=== PATIENT | male | born 1995 | race Caucasian/White ===

== ENCOUNTER 2017-05-24 12:13 | Emergency (ER) | payer BC ==
[~2017-05-24] VITALS: Ht 182.9 cm; Wt 98.8 kg
[2017-05-24] MEDS ORDERED: SODIUM CHLORIDE 0.9% 1000ML 1,000 ML IV STA (12:18)
[2017-05-24] MEDS ORDERED: ONDANSETRON INJ 2 MG/ML 2 ML VIAL IV STA (12:20)
--- NOTE | 2017-05-24 12:23 | EMERGENCY ROOM VISIT NOTE ---
History Report prepared by Darren: Julienne Durán Under the Supervision of: Dr. Minor Farley M.D. 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 Per EMS, the patient was walking home from a libertarian and fell multiple times onto his face. Unknown if there was any injury to the head. They report that the patient has been in and out of responsiveness and has had multiple episodes of hematemesis. The patient has a chin laceration. He states that he did not drink much today. Source of History: patient, EMS Onset: just HAZMAT CDL DRIVER Position: other (global) Quality: other (alcohol overdose) Timing: other (episode) Note: Pt has chin laceration. Review of Systems See HPI for pertinent positives & negatives. A total of 10 systems reviewed and were otherwise negative. Past Medical & Surgical Medical Problems: (1) No chronic problems Family History No pertinent family history stated. Social History Marital Status: single Housing Status: lives with roommate Occupation Status: student Current/Historical Medications No Active Prescriptions or Reported Meds Allergies Coded Allergies: No Known Allergies (Unverified , 08/26/15) Physical Exam Vital Signs Date Time Temp Pulse Resp B/P (MAP) Pulse Ox O2 Delivery O2 Flow Rate FiO2 05/24/17 15:50 72 16 110/68 98 Room Air NIBP 05/24/17 14:02 76 16 109/71 98 Room Air 05/24/17 13:08 86 05/24/17 13:04 96 Room Air 05/24/17 12:25 36.5 80 16 141/85 97 Room Air Physical Exam Vital signs reviewed. General: Odor of EtOH in the breath, disheveled 21-year-old male. Copiously vomiting black material. HEENT: Mild scleral injection bilaterally, PERRLA, neck supple, dry mucous membranes. Laceration to the chin 2.6cm in length. Cardiovascular: Regular rate and rhythm, no extra sounds. Pulmonary: Clear to auscultation bilaterally, normal work of breathing. Abdomen: Soft, nontender, nondistended, positive bowel sounds. Musculoskeletal: Upper and lower extremities atraumatic, no peripheral edema Skin: Warm, dry, no rash. Atraumatic. Neurologic: Patient is currently nonverbal. Medical Decision & Procedures ER Provider Diagnostic Interpretation: CT results as stated below per my review and radiologist interpretation: HEAD WITHOUT CONTRAST (CT) FINDINGS: No acute intracranial hemorrhage, midline shift, mass, large territorial ischemia or abnormal extra-axial collection. The calvarium is intact. Mild polypoid mucosal thickening involves the anterior right maxillary wall, 1.2 cm. Small air-fluid level of the right maxillary sinus is present with mild ethmoid sinus disease also noted. There is partial opacification of the medial left mastoid air cells. Soft tissues and orbits are unremarkable. IMPRESSION: 1. No acute intracranial abnormality. No hemorrhage or calvarial fracture. 2. Mild paranasal sinus disease. The above report was generated using voice recognition software. It may contain grammatical, syntax or spelling errors. Electronically signed by: Ac Olguin M.D. 05/24/2017 1:00 PM Dictated Date/Time: 05/24/2017 12:56 PM ABD/PELVIS IV CONTRAST ONLY FINDINGS: There are scattered groundglass opacities of the right lung base, greatest within the lateral portions. There is no pneumoperitoneum identified. Imaged inferior cardiac chambers are unremarkable. Note is made of symmetric bilateral gynecomastia. The liver, spleen, gallbladder, pancreas and adrenal glands are within normal limits. Kidneys and ureters are within normal limits. Urinary bladder is markedly distended measuring up to 18 cm in greatest dimension. Prostate is unremarkable. Abdominal aorta is normal in course and caliber. No bulky adenopathy. Debris-filled distal esophagus is noted with small hiatal hernia. There is no bowel obstruction or focal bowel wall thickening identified. Tubular air-filled structure of the right lower quadrant suggests normal appendix. Soft tissues are unremarkable. The bones appear intact. Subacute chronic appearing unilateral pars defect on the left is noted at L5. 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 Mild facet arthropathy noted at L5-S1. IMPRESSION: 1. Debris filled distal esophagus is noted with small hiatal hernia. 2. No focal bowel wall thickening or bowel obstruction. 3. No evidence of acute appendicitis. 4. Distended urinary bladder measures up to 18 cm in greatest dimension. 5. Subacute-appearing left pars defect at L5. The above report was generated using voice recognition software. It may contain grammatical, syntax or spelling errors. Electronically signed by: Ac Olguin M.D. 05/24/2017 1:08 PM Dictated Date/Time: 05/24/2017 1:00 PM Laboratory Results 05/24/17 12:25 Red Blood Count 5.17, Mean Corpuscular Volume 83.2, Mean Corpuscular Hemoglobin 29.4, Mean Corpuscular Hemoglobin Concent 35.3, Mean Platelet Volume 9.0, Neutrophils (%) (Auto) 55.7, Lymphocytes (%) (Auto) 33.7, Monocytes (%) (Auto) 8.5, Eosinophils (%) (Auto) 0.8, Basophils (%) (Auto) 1.1, Neutrophils # (Auto) 3.42, Lymphocytes # (Auto) 2.07, Monocytes # (Auto) 0.52, Eosinophils # (Auto) 0.05, Basophils # (Auto) 0.07 05/24/17 12:25 Test 05/24/17 12:25 05/24/17 12:35 White Blood Count 6.14 K/uL (4.8-10.8) Red Blood Count 5.17 M/uL (4.7-6.1) Hemoglobin 15.2 g/dL (14.0-18.0) Hematocrit 43.0 % (42-52) Mean Corpuscular Volume 83.2 fL (80-100) Mean Corpuscular Hemoglobin 29.4 pg (25-34) Mean Corpuscular Hemoglobin Concent 35.3 g/dl (32-36) Platelet Count 198 K/uL (130-400) Mean Platelet Volume 9.0 fL (7.4-10.4) Neutrophils (%) (Auto) 55.7 % Lymphocytes (%) (Auto) 33.7 % Monocytes (%) (Auto) 8.5 % Eosinophils (%) (Auto) 0.8 % Basophils (%) (Auto) 1.1 % Neutrophils # (Auto) 3.42 K/uL (1.4-6.5) Lymphocytes # (Auto) 2.07 K/uL (1.2-3.4) Monocytes # (Auto) 0.52 K/uL (0.11-0.59) Eosinophils # (Auto) 0.05 K/uL (0-0.5) Basophils # (Auto) 0.07 K/uL (0-0.2) RDW Standard Deviation 39.5 fL (36.4-46.3) RDW Coefficient of Variation 13.2 % (11.5-14.5) Immature Granulocyte % (Auto) 0.2 % Immature Granulocyte # (Auto) 0.01 K/uL (0.00-0.02) Est Creatinine Clear Calc Drug Dose 147.9 ml/min Estimated GFR () 129.7 Estimated GFR (Non- 111.9 BUN/Creatinine Ratio 10.8 (10-20) Calcium Level 8.3 mg/dl (8.5-10.1) Ethyl Alcohol mg/dL 329.0 mg/dl (0-3) Bedside Hemoglobin 14.6 g/dl (14.0-18.0) Bedside Hematocrit 43 % (42-52) Bedside Sodium 143 mEq/L (135-144) Bedside Potassium 3.4 mEq/L (3.3-5.0) Bedside Chloride 105 mEq/L (101-112) Bedside Total CO2 23 mEq/l (24-31) Anion Gap 19.0 mmol/L (16-25) Bedside Blood Urea Nitrogen 10 mg/dl (7-18) Bedside Creatinine 1.4 mg/dl Bedside Glucose (other) 115 mg/dl (70-99) Bedside Ionized Calcium (Abraham) 1.10 mmol/l Labs reviewed by ED physician. Medications Administered Medications (Trade) Dose Ordered Sig/Sidney Route Start Time Stop Time Status Last Admin Dose Admin Sodium Chloride 1,000 ml @ 999 mls/hr Q1H1M STAT IV 05/24/17 12:18 05/24/17 13:18 DC 05/24/17 12:18 999 MLS/HR Ondansetron HCl (Zofran Inj) 4 mg NOW STAT IV 05/24/17 12:20 05/24/17 12:21 DC 05/24/17 12:20 4 MG Ranitidine HCl (zANTac IV) 50 mg NOW STAT IV 05/24/17 12:52 05/24/17 12:53 DC 05/24/17 12:58 50 MG Metoclopramide HCl (Reglan Inj) 10 mg NOW STAT IV 05/24/17 13:26 05/24/17 13:27 DC 05/24/17 13:38 10 MG Bacitracin (Bacitracin Oint) 1 appln NOW ONCE EXT 05/24/17 14:45 9/2/17 14:46 DC 05/24/17 15:16 1 APPLN ED Course 1213: Past medical records reviewed. The patient was evaluated in room B4. A complete history and physical examination was performed. 1218: Sodium Chloride 1000 ml @ 999 mls/hr IV. 1220: Zofran Inj 4mg IV. 1252: Zantac IV 50mg IV. 1311: Lidocaine/Epinephrine 20ml INFIL. 1326: Reglan Inj 10mg IV. 1445: Bacitracin 1 appln EXT. Medical Decision The differential diagnosis of the patient's presentation includes alcohol ingestion, illicit drug use, trauma, and dehydration. This is a 21-year-old male who presents to the emergency department brought in by the police over concerns that the patient was in distress. The patient's smell strongly of alcohol and appears to be vomiting blood. Due to how unresponsive the patient was and how resistant he was to antiemetics. He was immediately sent for a CAT scan of his head as well as his abdomen and pelvis. The patient is bleeding from a chin wound and it appears covered in blood. CT of the head as well as the abdomen and pelvis is normal. A blood alcohol level was obtained. The patient was found to be grossly high at .314. He was placed in the prone position and aspiration precautions were taken. An IV was established, the patient given normal saline bolus, 4 Zofran, 10 of Reglan. Repeat examination revealed improvement patient's symptoms. The patient is a stable hemoglobin of 14 area he is a soft abdomen. The patient was frequently reassessed during his stay in the emergency department. His vital signs remained stable. After some time his alcohol intoxication did clear and I feel that the patient can be safely discharged home in the care of friends. I strongly suggested to the patient that he discuss this visit with his parents. I do feel he will need follow-up with gastroenterology due to the profuse vomiting. I strongly recommended he cease alcohol consumption for at least the next week. The patient's laceration was closed by Dr. Askew. Please see his note. Medication Reconcilliation Current Medication List: was personally reviewed by me Blood Pressure Screening Patient's blood pressure: Elevated blood pressure Blood pressure disposition: Elevated BP felt to be situational Impression Primary Impression: Alcohol intoxication Additional Impression: Hematemesis Critical Care I have personally spent greater than 30 minutes of critical care time in the direct management of this patient. This includes bedside care, interpretation of diagnostic studies, and testing, discussion with consultants, patient, and family members, and other required patient management activities. This 30 minutes is in excess of all separately billable procedures. Scribe Attestation The scribe's documentation has been prepared under my direction and personally reviewed by me in its entirety. I confirm that the note above accurately reflects all work, treatment, procedures, and medical decision making performed by me. Departure Information Dispostion Home / Self-Care Prescriptions No Active Prescriptions or Reported Meds Forms HOME CARE DOCUMENTATION FORM, IMPORTANT VISIT INFORMATION Patient Instructions [facility]: [employer] Students and Alcohol Related Visits, My [facility] Additional Instructions STRONGLY SUGGEST YOU DISCUSS THIS VISIT WITH YOUR PARENTS YANETH .330 @ 1225 Sober @ 0030 Sutures out in 7-10 days Do not drink alcohol for next 7 days Follow up with DR Sinclair's office for hematemesis You have been examined and treated today on an emergency basis only. This is not a substitute for, or an effort to provide, complete comprehensive medical care. It is impossible to recognize and treat all injuries or illnesses in a single emergency department visit. It is therefore important that you follow up closely with [facility]. Call as soon as possible for an appointment. Thank you for your time and consideration. I look forward to speaking with you again soon. Please don't hesitate to call us if you have any questions. Problem Qualifiers Primary Impression: Alcohol intoxication Complication of substance-induced condition: with unspecified complication Qualified Codes: F10.929 - Alcohol use, unspecified with intoxication, unspecified Additional Impression: Hematemesis Nausea presence: with nausea Qualified Codes: K92.0 - Hematemesis; R11.0 - Nausea
[2017-05-24 12:25] VITALS: TEMP 36.5; Ht 182.9 cm; Wt 98.8 kg
[2017-05-24] MEDS ORDERED: OPTIRAY 320 IV PRN (12:30)
[2017-05-24] MEDS ORDERED: RANITIDINE HCL 50 MG/100 ML D5W IV STA (12:52)
[2017-05-24 12:53] LABS: BASO % 1.1 %; BASO ABS # 0.07 K/uL (0-0.2); COMPLETE YES; EOS % 0.8 %; IG% 0.2 %; LYMPH % 33.7 %; LYMPH ABS # 2.07 K/uL (1.2-3.4); MEAN CELL VOLUME 83.2 fL (80-100); MEAN CORPUSCULAR HEMOGLOBIN 29.4 pg (25-34); MEAN CORPUSCULAR HGB CONC 35.3 g/dl (32-36); MONO % 8.5 %; NEUT % 55.7 %; PLATELET COUNT 198 K/uL (130-400); RED BLOOD COUNT 5.17 M/uL (4.7-6.1); WHITE BLOOD COUNT 6.14 K/uL (4.8-10.8)
--- NOTE | 2017-05-24 13:02 | DIAGNOSTIC IMAGING REPORT ---
HEAD WITHOUT CONTRAST (CT) CLINICAL HISTORY: 21 years-old Male with Pt c/o AMS. Acute altered mental status with alcohol intoxication. TECHNIQUE: Multiple axial CT images of the head were obtained without contrast. A dose lowering technique was utilized adhering to the principles of ALARA. COMPARISON: None. FINDINGS: No acute intracranial hemorrhage, midline shift, mass, large territorial ischemia or abnormal extra-axial collection. The calvarium is intact. Mild polypoid mucosal thickening involves the anterior right maxillary wall, 1.2 cm. Small air-fluid level of the right maxillary sinus is present with mild ethmoid sinus disease also noted. There is partial opacification of the medial left mastoid air cells. Soft tissues and orbits are unremarkable. IMPRESSION: 1. No acute intracranial abnormality. No hemorrhage or calvarial fracture. 2. Mild paranasal sinus disease. The above report was generated using voice recognition software. It may contain grammatical, syntax or spelling errors. Electronically signed by: Ac Olguin M.D. 05/24/2017 1:00 PM Dictated Date/Time: 05/24/2017 12:56 PM
[2017-05-24 13:04] VITALS: O2SAT 96
--- NOTE | 2017-05-24 13:10 | DIAGNOSTIC IMAGING REPORT ---
ABD/PELVIS IV CONTRAST ONLY HISTORY: 21 years-old Male Pt hematemesis acute hematemesis with alcohol toxic dictation. Initial exam. COMPARISON: None available TECHNIQUE: Multiple axial CT images of the abdomen and pelvis were obtained following the intravenous administration of 94 mL Optiray 320. A dose lowering technique was used consistent with the principals of BHARTI. FINDINGS: There are scattered groundglass opacities of the right lung base, greatest within the lateral portions. There is no pneumoperitoneum identified. Imaged inferior cardiac chambers are unremarkable. Note is made of symmetric bilateral gynecomastia. The liver, spleen, gallbladder, pancreas and adrenal glands are within normal limits. Kidneys and ureters are within normal limits. Urinary bladder is markedly distended measuring up to 18 cm in greatest dimension. Prostate is unremarkable. Abdominal aorta is normal in course and caliber. No bulky adenopathy. Debris-filled distal esophagus is noted with small hiatal hernia. There is no bowel obstruction or focal bowel wall thickening identified. Tubular air-filled structure of the right lower quadrant suggests normal appendix. Soft tissues are unremarkable. The bones appear intact. Subacute chronic appearing unilateral pars defect on the left is noted at L5. 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 Mild facet arthropathy noted at L5-S1. IMPRESSION: 1. Debris filled distal esophagus is noted with small hiatal hernia. 2. No focal bowel wall thickening or bowel obstruction. 3. No evidence of acute appendicitis. 4. Distended urinary bladder measures up to 18 cm in greatest dimension. 5. Subacute-appearing left pars defect at L5. The above report was generated using voice recognition software. It may contain grammatical, syntax or spelling errors. Electronically signed by: Ac Olguin M.D. 05/24/2017 1:08 PM Dictated Date/Time: 05/24/2017 1:00 PM
[2017-05-24] MEDS ORDERED: LIDO/EPINEPHRINE/SOD BICARB 20 ML VIAL INFIL ONE (13:11)
[2017-05-24] MEDS ORDERED: LIDOCAINE/EPINEPHRINE 1% 20 ML VIAL ONE (13:11)
[2017-05-24 13:14] LABS: BUN/CREATININE RATIO 10.8 (10-20); CALCIUM 8.3 mg/dl (8.5-10.1); CREATININE 0.97 mg/dl (0.60-1.40); POTASSIUM 3.4 mmol/L (3.5-5.1)
[2017-05-24] MEDS ORDERED: METOCLOPRAMIDE HCL INJ 5 MG/ML 2 ML VIAL IV STA (13:26)
[2017-05-24 14:01] LABS: ISTAT CREATININE 1.4 mg/dl; ISTAT HEMOGLOBIN 14.6 g/dl (14.0-18.0); ISTAT IONIZED CALCIUM 1.1 mmol/l
--- NOTE | 2017-05-24 14:42 | Procedure Note ---
Procedure Note Date of Service May 24, 2017. Procedure Note Location: chin Total length: 4 cm Verbal consent was obtained after the risks and benefits were explained, including but not limited to bleeding, scarring, infection, pain, and bone/joint /nerve damage. At this time, the risks of the procedure are less than the risks of NOT performing the procedure. A time out was taken and the correct patient and site identified.The target area was anesthetized with 5 ml of 1% lidocaine without epinephrine. Copious irrigation was performed using saline. The skin was prepped with Betadine and a sterile field set. The wound was explored for foreign bodies and none found. Examination revealed no injury to deep structures such as tendons, bone, or significant blood vessels. Debridement was not performed. The wound edges were approximated using 6, 5-0 simple interrupted nylon sutures. Hemostasis and excellent approximation was achieved. Antibacterial ointment and a sterile dressing applied. Detailed wound care instructions and signs and symptoms of infection reviewed with the patient. No complications and the patient tolerated the procedure well.
[2017-05-24] MEDS ORDERED: BACITRACIN OINT 15 GM TUBE EXT ONE (14:45)
[2017-05-24 19:58] VITALS: BP 119/61; PULSE 100; O2SAT 96
== END 2017-05-24 20:37 | disposition home or self-care (01) ==
LOC: EDBD 12:13 → C.EDB 12:17
DX: F10.929 Alcohol use, unspecified with intoxication, unspecified (principal); K92.0 Hematemesis; R11.0 Nausea; S01.81XA Laceration without foreign body of other part of head, initial encounter; W18.30XA Fall on same level, unspecified, initial encounter; W22.8XXA Striking against or struck by other objects, initial encounter; Y93.01 Activity, walking, marching and hiking; Y99.8 Other external cause status

== ENCOUNTER 2017-06-03 21:11 | Emergency (ER) | payer BC ==
[~2017-06-03] VITALS: Ht 188 cm; Wt 98.0 kg
[2017-06-03 21:20] VITALS: BP 135/87; PULSE 91; TEMP 36.6; O2SAT 96; Ht 188 cm; Wt 98.0 kg
--- NOTE | 2017-06-04 03:32 | EMERGENCY ROOM VISIT NOTE ---
ED Visit Note First contact with patient: 21:38 CHIEF COMPLAINT: I'm here to have sutures removed from my chin laceration. HISTORY OF PRESENT ILLNESS: Mr. Ortiz is a 22-year-old white male who ambulates into the ED requesting suture removal. Patient reports he fell 10 days ago and sustained a chin laceration. He was seen in this ED and his laceration was closed with sutures. Since being discharge he reports there has been no pain, swelling, redness, or drainage from the wound and he feels like the laceration is healing well. PHYSICAL EXAM: Vital Signs: Date Time Temp Pulse Resp B/P (MAP) Pulse Ox O2 Delivery O2 Flow Rate FiO2 06/03/17 21:20 36.6 91 18 135/87 96 Room Air General: 22-year-old white male in no acute distress, nontoxic-appearing, afebrile and hemodynamically stable. Neurological: Awake, alert and oriented 3. Answering questions appropriately and following commands. Face: Clean dry and intact wound on the inferior chin without signs of infection (erythema, swelling, tenderness, purulent drainage). ED COURSE: Patient is assessed as noted above. 6 sutures were removed without any difficulty and there was no separation of the wound edges. There was a small amount of scab on the wound which broke off during suture removal which causes some mild bleeding but was controlled with direct pressure. Patient was educated about today's findings and instructed on his treatment plan ; he verbalized understanding and agreement with this plan. DISPOSITION: Patient discharged home in stable condition. CLINICAL IMPRESSION: Suture removal; Well healing laceration. PLAN: Patient was encouraged to continue current treatment plan on wound care and continue to watch for signs of infection. Patient was encouraged return ED for any signs of infection or any new/ concerning symptoms.
== END 2017-06-03 21:45 | disposition home or self-care (01) ==
LOC: C.EDB 21:13 → C.EDD 21:45
DX: Z48.02 Encounter for removal of sutures (principal)